=== PATIENT | female | born 1990 | race Caucasian/White ===

== ENCOUNTER 2024-03-30 13:20 | Emergency (ER) | payer MEDICAID, SELFPAY ==
[2024-03-30 13:31] VITALS: BP 113/69; PULSE 71; TEMP 36.8; O2SAT 95; BMI 36.7
--- NOTE | 2024-03-30 13:39 | XR_ITS ---
The [address] [address] Patient Name: LAKSHMI BARRON MRN: [id number] date: 1990 Sex: F Assigned Patient Location: ER Current Patient Location: ED.MAIN Accession/Order Number: [id number] Exam Date: 03/30/2024 14:06 Report Date: 03/30/2024 14:38 At the request of: GE TREVINO Procedure: XR chest 2V EXAMINATION: XR chest 2V HISTORY: cough COMPARISON: No relevant comparison available. FINDINGS: LUNGS: Minimal haziness within lateral left lung base and small opacity obscuring one of the posterior costophrenic angles, likely on the left. VASCULATURE: No increased pulmonary vasculature. PLEURA: No pneumothorax, effusion, or pleural thickening. CARDIAC: No cardiomegaly or cardiac silhouette abnormality. MEDIASTINUM: No visible mass or adenopathy. BONES: No fracture or visible bone lesion. OTHER: Negative. XR/XR chest 2V IMPRESSION: 1. Trace amount of left basilar infiltrates versus atelectasis. Electronically authenticated by: ALISTAIR WALLACE Date: 03/30/2024 14:38
[2024-03-30] MEDS: IPRATROPIUM/ALBUTEROL SULFATE 3 ML AMPUL.NEB IH (13:57)
--- NOTE | 2024-03-30 14:31 | ED.GENADUL1 ---
HPI HPI - General Adult General Chief complaint: Upper Respiratory Infection Stated complaint: COUGH, RIGHT SIDE PAIN, CONGESTION Time Seen by Provider: 03/30/24 13:38 Source: patient Mode of arrival: walk-in Limitations: no limitations History of Present Illness HPI narrative: 34-year-old female with a history of asthma and is a smoker presents for chief complaint of cough congestion and right-sided pain. Patient states she has a hard time taking a deep breath and coughing no injury or trauma. Patient has bilateral inspiratory wheezing on examination initially. She has an inhaler at home she has been using without relief. She is not hypoxic. Vital signs are stable. Sentences. Related Data Home Medications ?Medication ?Instructions ?Recorded ?Confirmed fluoxetine 40 mg capsule 40 mg PO DAILY 03/30/24 03/30/24 gabapentin 400 mg capsule 400 mg PO TID 03/30/24 03/30/24 hydroxyzine HCl 50 mg tablet 50 mg PO TID-QID PRN anxiety 03/30/24 03/30/24 prazosin 2 mg capsule 2 mg PO DAILY 03/30/24 03/30/24 trazodone 50 mg tablet 50 mg PO DAILY 03/30/24 03/30/24 ziprasidone HCl 40 mg capsule 100 mg PO DAILY 03/30/24 03/30/24 (Yelitza) Previous Rx's ?Medication ?Instructions ?Recorded doxycycline hyclate 100 mg tablet 100 mg PO BID 10 days #20 tabs 03/30/24 prednisone 50 mg tablet 25 mg (1/2 x 50 mg) PO DAILY #7 03/30/24 tabs Allergies Allergy/AdvReac Type Severity Reaction Status Date / Time No Known Drug Allergies Allergy Verified 03/30/24 13:31 Opioid HPI Opioid Management Most Recent Opioid Data: No Data to Display Review of Systems ROS Narrative All Systems are negative except as noted/marked.All systems reviewed and otherwise negative PFSH PFSH Social History Little interest or pleasure in doing things: not at all Feeling down, depressed, or hopeless: not at all Exam Narrative Exam Narrative: All Systems are negative except as noted/marked.All systems reviewed and otherwise negative Nurses note and vital signs reviewed and patient is not hypoxic. General: The patient appears well and in no apparent distress. Patient is resting comfortably on cart. Skin: Warm, dry, no pallor noted. There is no rash noted. Head: Normocephalic, atraumatic Eye: Normal conjunctiva, no drainage, EOMI. PERRL Ears, Nose, Mouth, and Throat: oral mucosa is moist. Nares patent. Mouth without vesicles. Ear canals patent. Tm's without Erythema Cardiovascular: Regular Rate and Rhythm Respiratory inspiratory and expiratory wheezing, patient is in no distress, no accessory muscle use, no rales or rhonchi Back: non-tender, no CVA tenderness bilaterally to percussion. GI: Normal bowel sounds, no tenderness to palpation, no masses appreciated. No rebound, guarding, or rigidity noted. Musculoskeletal: The patient has no evidence of calf tenderness, no pitting edema, symmetrical pulses noted bilaterally Neurological: A&O x4, normal speech Psychiatric: Cooperative Constitutional Vital Signs, click to edit/add: Last Vital Signs Temp 98.3 F 03/30/24 13:31 Pulse 71 03/30/24 13:31 Resp 18 03/30/24 13:31 BP 113/69 03/30/24 13:31 Pulse Ox 95 03/30/24 13:31 O2 Del Method Room Air 03/30/24 13:31 Course Vital Signs Vital signs: Vital Signs Temperature 98.3 F 03/30/24 13:31 Pulse Rate 71 03/30/24 13:31 Respiratory Rate 18 03/30/24 13:31 Blood Pressure 113/69 03/30/24 13:31 Pulse Oximetry 95 03/30/24 13:31 Oxygen Delivery Method Room Air 03/30/24 13:31 Temperature 98.3 F 03/30/24 13:31 Pulse Rate 71 03/30/24 13:31 Respiratory Rate 18 03/30/24 13:31 Blood Pressure 113/69 03/30/24 13:31 Pulse Oximetry 95 03/30/24 13:31 Oxygen Delivery Method Room Air 03/30/24 13:31 Medical Decision Making MDM Narrative Medical decision making narrative: Patient presented with 3-day history of cough congestion shortness of breath. She has a history of smoking and asthma. She states she has been unable to take in a deep breath due to pain and discomfort on the right side. She shows no signs of distress and able speak full sentences x-ray shows no acute changes. Here with a DuoNeb breathing treatment. Due to history of smoking and length of sickness with placed on doxycycline for upper respiratory infection, prednisone and follow-up primary care physician. She agrees with plan of care 1500 notified that x-ray report showed atelectasis versus infiltrate. Patient had been medicated and discharged home with antibiotics doxycycline and prednisone. She will follow-up with her doctor. She was notified take the antibiotics till they are completely gone. Reasons to return to the emergency room were discussed. patient agrees with plan of care. Differential Diagnosis Differential Diagnosis: , Bronchitis, URI,pneumonia Medical Records Medical records reviewed: Yes I reviewed the patient's medical records Lab Data Lab results reviewed: Yes I reviewed the patient's lab results Imaging Data Chest x-ray: Radiologist's impression: ITS Impressions Chest X-Ray 03/30/24 13:39 IMPRESSION: 1. Trace amount of left basilar infiltrates versus atelectasis. Electronically authenticated by: ALISTAIR WALLACE Date: 03/30/2024 14:38 Discharge Plan Discharge Chief Complaint: Upper Respiratory Infection Clinical Impression: Upper respiratory infection Patient Disposition: Home, Self-Care Time of Disposition Decision: 14:27 Condition: Good Mode of Transportation: Private Vehicle Prescriptions / Home Meds: New doxycycline hyclate 100 mg tablet 100 mg PO BID 10 Days Qty: 20 0RF prednisone 50 mg tablet 25 mg PO DAILY Qty: 7 0RF No Action ziprasidone HCl [Geodon] 40 mg capsule 100 mg PO DAILY Rx Instructions: give with food (meal/snack) gabapentin 400 mg capsule 400 mg PO TID prazosin 2 mg capsule 2 mg PO DAILY fluoxetine 40 mg capsule 40 mg PO DAILY trazodone 50 mg tablet 50 mg PO DAILY hydroxyzine HCl 50 mg tablet 50 mg PO TID-QID PRN (Reason: anxiety) Print Language: Australian Instructions: Upper Respiratory Infection (ED) Referrals: Physician,Non-Staff, MD [Primary Care Provider] - 1 week Discharge Date/Time: 03/30/24 14:41
[2024-03-30] MEDS: KETOROLAC TROMETHAMINE 60 MG/2 ML VIAL IM (14:37)
== END 2024-03-30 14:41 | disposition home or self-care (01) ==
PROVIDERS: Emergency Provider Emergency Medicine
DX: J06.9 Acute upper respiratory infection, unspecified (principal); F17.200 Nicotine dependence, unspecified, uncomplicated
CPT/HCPCS: 71046; 94640; 96372; 99284; J1885

== ENCOUNTER 2024-04-02 19:19 | Emergency (ER) | payer MEDICAID, SELFPAY ==
[2024-04-02 19:26] VITALS: BP 126/90; PULSE 62; TEMP 36.8; O2SAT 96; BMI 36.7
--- NOTE | 2024-04-02 19:47 | XR_ITS ---
The [address] [address] Patient Name: LAKSHMI BARRON MRN: [id number] date: 1990 Sex: F Assigned Patient Location: ER Current Patient Location: Accession/Order Number: [id number] Exam Date: 04/02/2024 20:20 Report Date: 04/02/2024 22:57 At the request of: BIA PALACIOS Procedure: XR chest 1V CXR HISTORY: chest pain COMPARISON: None. TECHNIQUE: 1 view chest submitted for review. FINDINGS: Lines and tubes: None Lung volumes are adequately expanded. Bronchopulmonary markings are prominent. No pneumothorax. No effusion. The cardiac shadow measures within normal. Pulmonary vascularity is prominent. Osseous structures do not demonstrate any acute abnormality. XR/XR chest 1V IMPRESSION: Minimal prominence of interstitial markings which can be seen in fluid overload, viral airway disease, and/or chronic interstitial lung disease. Electronically authenticated by: JOSTIN ESTRADA Date: 04/02/2024 22:57
--- NOTE | 2024-04-02 19:48 | ED_ITS ---
HPI HPI - General Adult General Chief complaint: Back Pain/Injury Stated complaint: SIDE PAIN Time Seen by Provider: 04/02/24 19:21 Source: patient Mode of arrival: Wheelchair Limitations: no limitations History of Present Illness HPI narrative: pt diagnosed with pneumonia 03/30/24 after presenting to the ED complaining of cough and right sided chest pain - just below and lateral to the breast. CXR revealed atelectasis vs infiltrate and she was discharged home with prescriptions for doxycycline and prednisone. She returns complaining that while the cough is slightly improved her right sided chest pain is no better. Still in the same location. She is a smoker but not on BCPs and no history of DVT or PE. No fever or chills today. No neck or back pain. No abdominal pain, nausea or vomiting. She had a hysterectomy and they removed both tubes she told me. Related Data Home Medications ?Medication ?Instructions ?Recorded ?Confirmed fluoxetine 40 mg capsule 40 mg PO DAILY 03/30/24 03/30/24 gabapentin 400 mg capsule 400 mg PO TID 03/30/24 03/30/24 hydroxyzine HCl 50 mg tablet 50 mg PO TID-QID PRN anxiety 03/30/24 03/30/24 prazosin 2 mg capsule 2 mg PO DAILY 03/30/24 03/30/24 trazodone 50 mg tablet 50 mg PO DAILY 03/30/24 03/30/24 ziprasidone HCl 40 mg capsule 100 mg PO DAILY 03/30/24 03/30/24 (Yelitza) Previous Rx's ?Medication ?Instructions ?Recorded doxycycline hyclate 100 mg tablet 100 mg PO BID 10 days #20 tabs 03/30/24 prednisone 50 mg tablet 25 mg (1/2 x 50 mg) PO DAILY #7 03/30/24 tabs methocarbamol 750 mg tablet 750 mg PO Q6H PRN pain #30 tabs 04/02/24 nabumetone 750 mg tablet 750 mg PO BID PRN pain #14 tabs 04/02/24 Allergies Allergy/AdvReac Type Severity Reaction Status Date / Time No Known Drug Allergies Allergy Verified 03/30/24 13:31 Opioid HPI Opioid Management Most Recent Opioid Data: Last Pain Scale 10 04/02/24 20:33 04/02/24 Last ED Pain Assessment 04/02/24 19:50 PFSH PFSH Social History Little interest or pleasure in doing things: not at all Feeling down, depressed, or hopeless: not at all Exam Narrative Exam Narrative: Nurses notes and vital signs reviewed and patient is not hypoxic. afebrile General: Well-appearing and in no apparent distress. Skin: Warm, dry, no pallor noted. No rash. Eye: Pupils are equal, round and EOMI. No scleral icterus. Ears, Nose, Mouth, and Throat: Oral mucosa is moist Cardiovascular: Regular Rate and Rhythm without murmur, gallop or rub. Respiratory: No accessory muscle use or respiratory distress. Lungs are clear to auscultation, no wheezing, rales or rhonchi Chest Wall: no crepitus or subcutaneous emphysema. Focal right lower chest wall/rib tenderness at the right axillary line just inferior to the right breast Back: No midline thoracic or lumbar vertebral tenderness. No CVA tenderness Musculoskeletal: normal ROM, no calf or popliteal tenderness, no lower extremity edema/swelling GI: Abdomen is soft, non-distended. Normal bowel sounds. No masses appreciated. No tenderness to palpation. No rebound, guarding, or rigidity noted. Neurological: A&O x4. No cranial nerve dysfunction observed. No truncal ataxia. Moves all extremities. Sensation intact. Psychiatric: Cooperative and interactive. Normal mood and affect. Constitutional Vital Signs, click to edit/add: Last Vital Signs Temp 98.3 F 04/02/24 19:26 Pulse 62 04/02/24 19:26 Resp 22 H 04/02/24 19:26 BP 126/90 04/02/24 19:26 Pulse Ox 96 04/02/24 19:26 O2 Del Method Room Air 04/02/24 19:26 Course Vital Signs Vital signs: Vital Signs Temperature 98.3 F 04/02/24 19:26 Pulse Rate 62 04/02/24 19:26 Respiratory Rate 22 H 04/02/24 19:26 Blood Pressure 126/90 04/02/24 19:26 Pulse Oximetry 96 04/02/24 19:26 Oxygen Delivery Method Room Air 04/02/24 19:26 Temperature 98.3 F 04/02/24 19:26 Pulse Rate 62 04/02/24 19:26 Respiratory Rate 22 H 04/02/24 19:26 Blood Pressure 126/90 04/02/24 19:26 Pulse Oximetry 96 04/02/24 19:26 Oxygen Delivery Method Room Air 04/02/24 19:26 Medical Decision Making [facility] Narrative Medical decision making narrative: The patient presents with continued focal right lower anterolateral rib cage pain for which she was evaluated 3 days ago in this emergency department. At that time her chest x-ray revealed atelectasis versus infiltrate and she was discharged home on a course of prednisone along with doxycycline for presumed pneumonia. She returns stating that while her cough is improved her pain is not improved. Very low risk for pulmonary embolism, but a D-dimer was ordered to be sent for testing. Chest x-ray was also ordered to be obtained. She was ordered to receive an IM injection of Toradol and an oral Robaxin tablet for pain. Screening D-dimer was negative and the chest x-ray did not show pneumothorax or other acute worrisome cardiopulmonary abnormalities that would account for the patient's right-sided rib cage pain. The patient was informed of results and discharged home with prescription for additional Robaxin as well as some Relafen to take for pain Lab Data Lab results reviewed: Yes I reviewed the patient's lab results Labs: Lab Results 04/02/24 Range/Units 20:10 D-Dimer 0.43 (<=0.59) mg/L FEU Imaging Data Chest x-ray: Attestation: I personally reviewed and interpreted this imaging study as follows: My impression: NAD Discharge Plan Discharge Chief Complaint: Back Pain/Injury Clinical Impression: Pleurisy Patient Disposition: Home, Self-Care Time of Disposition Decision: 20:55 Prescriptions / Home Meds: New nabumetone 750 mg tablet 750 mg PO BID PRN (Reason: pain) Qty: 14 0RF methocarbamol 750 mg tablet 750 mg PO Q6H PRN (Reason: pain) Qty: 30 0RF No Action ziprasidone HCl [Geodon] 40 mg capsule 100 mg PO DAILY Rx Instructions: give with food (meal/snack) gabapentin 400 mg capsule 400 mg PO TID prazosin 2 mg capsule 2 mg PO DAILY fluoxetine 40 mg capsule 40 mg PO DAILY trazodone 50 mg tablet 50 mg PO DAILY hydroxyzine HCl 50 mg tablet 50 mg PO TID-QID PRN (Reason: anxiety) doxycycline hyclate 100 mg tablet 100 mg PO BID 10 Days Qty: 20 0RF prednisone 50 mg tablet 25 mg PO DAILY Qty: 7 0RF Print Language: Portuguese Instructions: Pleurisy (ED) Referrals: Physician,Non-Staff, MD [Primary Care Provider] - 1 week
[2024-04-02 20:33] LABS: D Dimer 0.43 mg/L FEU (<=0.59)
[2024-04-02] MEDS: KETOROLAC TROMETHAMINE 60 MG/2 ML VIAL IM (20:33)
[2024-04-02] MEDS: METHOCARBAMOL 500 MG TABLET PO (20:34)
[2024-04-02 21:02] LABS: Bilirubin Urine NEGATIVE (NEGATIVE); Blood Urine NEGATIVE (NEGATIVE); Clarity Urine CLEAR (CLEAR); Color Urine LT. YELLOW (YELLOW); Glucose Urine UA NEGATIVE (NEGATIVE); Ketones Urine NEGATIVE (NEGATIVE); Leukocyte Esterase Urine NEGATIVE (NEGATIVE); Nitrite Urine NEGATIVE (NEGATIVE); Protein Urine NEGATIVE (NEG/TRACE); Specific Gravity Urine 1.015 (1.005-1.025); Urobilinogen Urine 0.2 EU/dL (0.2-1.0)
[2024-04-02 21:09] LABS: Urine Microscopic Indicated NO
[2024-04-02 21:35] VITALS: BP 133/78; PULSE 57; O2SAT 100
== END 2024-04-02 21:38 | disposition home or self-care (01) ==
PROVIDERS: Emergency Provider Emergency Medicine
DX: R09.1 Pleurisy (principal); F17.200 Nicotine dependence, unspecified, uncomplicated; Z90.710 Acquired absence of both cervix and uterus
CPT/HCPCS: 36415; 71045; 81003; 85378; 96372; 99285; J1885